=== PATIENT | male | born 1950 | race Caucasian/White ===

== ENCOUNTER → 2016-07-24 | Outpatient (CLI) | payer MEDICARE, OTHER ==
[~2016-07-24] MED LIST: ACET650S12 PR; ACYC-113 PO; ALLO100T30 PO; AMLO5TAB4 PO; ASCO10004 PO; CEVI30CA4 PO; CITA20TA5 PO; DENIES; EZET10TA3 PO; GABA100C PO; GRAN1TAB PO; GUAI200T3 PO; LISI-170 PO; Lidocaine Hcl MM; MAGN400T26 PO; MULT-658 PO; MULT-82 PO; Methadone Hcl PO; ONDA4TAB7 PO; OXYC-302 PO; Oxycodone Hcl PO; POTASSIUM PO; TADA5TAB2 PO; TRAM50TA2 PO; VITA1TAB3 PO; VITAMIN B-6 PO; maalox/diphenh/lido/sucralfate PO
== END | disposition home or self-care (01) ==
LOC: ROC 14:53
PROVIDERS: ATTEND Radiology Radiation Oncology
DX: C01 Malignant neoplasm of base of tongue (principal); Z92.21 Personal history of antineoplastic chemotherapy
CPT/HCPCS: G0463